=== PATIENT | male | born 1955 | race Caucasian/White ===

== ENCOUNTER 2018-10-30 14:00 | Outpatient (RCR) | payer OTHER ==
[2013-05-24 14:35] VITALS: BMI 27.8
--- NOTE | 2018-10-25 11:48 | RS.OPPTEV2 ---
Date of Note: 10/24/18 Visit #: 1 Number of visits approved by Insurance: n/a Date of Evaluation: 10/24/18 Payer Source: MEDICARE Surgery Performed?: Yes Treatment Diagnosis: pain L hip, SI joint dysfunction History of Condition/Mechanism of Injury:: Pain began approx 3 days ago. No definite injury noted. Pain initially began while cominmg home from a trip while riding in the car. 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 States that his pain is in L hip and area of L SI joint. States saw MD today and he ordered prednisone, and pain meds but hasn't taken it yet. Treatment Side (optional): Left *Precautions: n/a Medical History Medical History: Hypertension Surgical History Comments:: hernia surgery Smoking Status: Never smoker Hx Home Medications: lisinopril Patient's Goals: decrease pain in L hip to return to normal level of function Pain Assessment - Pain Description Pain Location: L hip and SI area Pain Description: Sharp, Aching Current Pain Intensity: 8 Worst Pain Intensity: 10 Functional Outcome Measure LE Functional Scale: 8 - G Codes & Severity Modifier G Codes & Modifier: n/a Source of G Code score: n/a Observation - Observation Inspection: RLE longer than LLE. Hamstring tightness, IT band tightness Posture: Forward Head, Rounded Shoulders Handedness: Right Gait - Gait Pattern General Gait Pattern Observation: Antalgic Gait Gait Comments: pt amb with guarded posture, decreased step length with antalgic gait pattern. pt hip hikes to clear R LE due to pain in hip. Transfers sit to sup with min x 1 to assist with LLE General Range of Motion: BUE WFL's. RLE WFL's. LLE hip flex limited due to pain, knee and ankle WFL's Muscle Strength: BUE 5/5. RLE 5/5. LLE hip flex 3-/5, knee flex/ext atleast 3/ 5 as noted by ROM pt unable to tolerate further testing - ROM Lumbar Flexion: Hand reach to Mid-Thighs Sidebending to Left: Reach to Mid-thigh Sidebending to Right: Reach to Mid-thigh Lumbar Spine ROM Limitations: Soft Tissue Tightness, Pain - Strength Trunk Flexion: 3- Fair- Trunk Lateral Flexion: 3- Fair- - Special Tests SLR Test: Positive Left SI Joint Compression: Positive Comments: unable to perform all special tests due to significant pain. Hip ROM: Right WFL's Hip Muscle Strength: Right WFL's - Left Hip ROM Left Hip ROM Limitations: Pain, Tightness on Left, Pain on Left - Left Hip Strength Left Hip Flexion: 3- Fair- Left Hip Extension: 3- Fair- Left Hip Abduction: 3- Fair- Left Hip Adduction: 3- Fair- Left Hip External Rotation: 3- Fair- Left Hip Internal Rotation: 3- Fair- Comments: Difficult to MMT due to pain in L hip and SI area. - Right Hip Strength Comments: hip scour neg, pt does have pain with internal rotation of L hip. pt reports pain as sharp. - Special Test LULU Test: Positive Left Palpation Palpation Findings: Tenderness, Muscle Guarding Comments:: pt with tenderness to palpation in L SI area with muscle guarding, tenderness on L greater trochanter to palpation. Sensation - Sensation Right Upper Extremity: Intact/Normal Left Upper Extremity: Intact/Normal Right Lower Extremity: Intact/Normal Left Lower Extremity: Intact/Normal Balance - Sitting Balance Static Sitting Balance: Good - Standing Balance Static Standing Balance: Good Dynamic Standing Balance: Good - Treatment Modality: Electrical Stim Unattended Parameters/Method Applied: IFC at 12ma x 20 mins Treatment Area: L SI area Patient Position: Prone - Heat/Cryotherapy Treatment: Cryotherapy Comments:: L SI with estim Interventions - Exercise/Activities/Manual Therapy Exercises/Activities: Discussion with patient regarding positioning to decrease pain, ice to decrease pain and inflammation. pt unable to tolerate ex on day of eval. Manual Therapy: n/a HOME EXERCISE PROGRAM: No HEP given at this time, pt to return tomorrow. - Charges Timed Code Treatment Minutes: 36 Total Treatment Time: 58 Procedures billed for this date of service:: eval low, estim, CP EVALUATION COMPLEXITY LEVEL EVALUATION COMPLEXITY LEVEL: HISTORY: Low, EXAM OF BODY SYSTEMS: Low, CLINICAL PRESENTATION: Low, CLINICAL DECISION MAKING: Low Assessment Assessment: pt presents with significant 8/10 pain in L hip and SI joint area. pt with limited lumbar and L hip ROM due to pain. pt does have pain to palpation and muscle guarding in area of L SI. Feel pt would benefit from PT for therex for stretching, strengthening as well as modalities to decrease pain/ inflammation. PT eval completed over 2 visits due to pain. 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 Goal #1: pt able to return to normal household activities with less pain Goal to be met by: 12/01/18 Goal #2: pt report pain < 4/10 L hip/SI Goal to be met by: 12/01/18 Goal #3: Leg length equal BLE Goal to be met by: 12/01/18 Goal #4: pt amb without antalgic gait pattern Goal to be met by: 12/01/18 Plan - Treatment to be Provided Procedures: Therapeutic Exercises, Therapeutic Activity, Manual Therapy, Massage , Patient Education Modalities: Electrical Stimulation, Ultrasound/Phonophoresis, Class IV Laser, Cryotherapy, Hot Packs Other:: plan to further assess patient on next visit if - Treatment Plan Frequency: 2-3x a week Duration: 6 weeks Dates of Snf Goals: 12/01/18 Expiration date of current Insurance Approval:: n/a - Treatment Code (1) Left hip pain Code(s): M25.552 - PAIN IN LEFT HIP (2) Sacroiliac dysfunction Code(s): M53.3 - SACROCOCCYGEAL DISORDERS, NOT ELSEWHERE CLASSIFIED (3) Hamstring tightness Code(s): M62.89 - OTHER SPECIFIED DISORDERS OF MUSCLE (4) Stiffness of left hip joint Code(s): M25.652 - STIFFNESS OF LEFT HIP, NOT ELSEWHERE CLASSIFIED
--- NOTE | 2018-10-27 14:41 | RS.OPPTDN ---
Subjective Date of Note: 10/27/18 Visit #: 2 Number of visits approved by Insurance: na Date of Evaluation: 10/24/18 Payer Source: MEDICARE Treatment Diagnosis: pain L hip, SI joint dysfunction Current Subjective/complaints:: Patient enters clinic with slight antalgic gait ,but reports feeling much better than earlier in the week.He reports ahving a couple of tender spots in the L lumbar and L LE.He reports he has not taken any pain meds. today. *Precautions: n/a Pain Assessment - Pain Description Pain Location: L lumbar and L LE Pain Description: Dull, Aching Current Pain Intensity: 2-3 - Treatment Modality: Ultrasound Parameters/Method Applied: 10 mins. @ 1.5 w/cm2,cont. mode to lumbar. Patient Position: Prone - Heat/Cryotherapy Treatment: Hot Pack (20 mins. prior to US ) Interventions - Exercise/Activities/Manual Therapy Exercises/Activities: 35 mins. total of SKTC,DKTC,piriformis stretch in shortened ROM,SI MET.Long axis distraction to L LE. Total minutes of Exercise: 35 Manual Therapy: n/a Total minutes of Manual Therapy: 0 HOME EXERCISE PROGRAM: No HEP given at this time, pt to return tomorrow. - Charges Timed Code Treatment Minutes: 35 Total Treatment Time: 55 Procedures billed for this date of service:: hp,US,ex 2 Assessment: Progressing ,has significant improvement ,has less intensity of pain today,is able t0 tolerate the passive stretches.He is cautious and has good understanding of not to push through sharp pain .He is highly motivated to improve ,attentive to recommendations regarding his care. Patient Education: Education of diagnosis, Body/Joint mechanics, Home Exercise Program, Home Safety, Activity Modification, Education of Plan of Care Patient demonstrates compliance with HEP?: Yes Short Term Goals Goal #1: pt independent with initial HEP Goal to be met by: 11/10/18 Progress towards Goal:: Progressing Goal #2: Decrease pain in L hip/SI < 6/10 Goal to be met by: 11/10/18 Progress towards Goal:: Progressing Goal #3: Improve flexibility in L hamstring Goal to be met by: 11/10/18 Progress towards Goal:: Progressing Goal #4: ROM L hip WFL's w less pain Goal to be met by: 11/10/18 Progress towards Goal:: Progressing Senior Living Goals Goal #1: pt able to return to normal household activities with less pain Goal to be met by: 12/01/18 Goal #2: pt report pain < 4/10 L hip/SI Goal to be met by: 12/01/18 Goal #3: Leg length equal BLE Goal to be met by: 12/01/18 Goal #4: pt amb without antalgic gait pattern Goal to be met by: 12/01/18 Plan Dates of Senior Living Goals: 12/01/18 Expiration date of current Insurance Approval:: 12/01/18 PLAN: Cont. skilled PT to reduce /eliminate L hip /L LE pain.
--- NOTE | 2018-10-30 15:16 | RS.OPPTDN ---
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 *Precautions: n/a Pain Assessment - Pain Description Pain Location: L hip /L LE Current Pain Intensity: not rated - Heat/Cryotherapy Treatment: Hot Pack (20 mins. to lumbar) Interventions - Exercise/Activities/Manual Therapy Exercises/Activities: 30 mins. total of SKTC,DKTC,piriformis stretch.L heelcord stretches in short ROM.Instructed in standing lunges to stretch calf. Total minutes of Exercise: 30 Manual Therapy: n/a Total minutes of Manual Therapy: 0 HOME EXERCISE PROGRAM: Heel cord stretches,SKTC,DKTC,hams. stretches,piriformis stretches. - Charges Timed Code Treatment Minutes: 30 Total Treatment Time: 50 Procedures billed for this date of service:: hp,ex 2 Assessment: Patient has much improved AROM in the L LE with minimal pain.The L upper portion of the calf is tender to palpate today.He feels this may be from doing the hamstring stretches.Recommended to mention this to the ,as he does have edema present .He has negative Homans sign when assessed by the PT. Patient Education: Body/Joint mechanics, Home Exercise Program, Home Safety, Activity Modification, Education of Plan of Care Patient demonstrates compliance with HEP?: Yes Short Term Goals Goal #1: pt independent with initial HEP Goal to be met by: 11/10/18 Progress towards Goal:: Progressing Goal #2: Decrease pain in L hip/SI < 6/10 Goal to be met by: 11/10/18 Progress towards Goal:: Met Goal #3: Improve flexibility in L hamstring Goal to be met by: 11/10/18 Progress towards Goal:: Progressing Goal #4: ROM L hip WFL's w less pain Goal to be met by: 11/10/18 Progress towards Goal:: Progressing Care Home Goals Goal #1: pt able to return to normal household activities with less pain Goal to be met by: 12/01/18 Progress towards goal: Progressing Goal #2: pt report pain < 4/10 L hip/SI Goal to be met by: 12/01/18 Goal #3: Leg length equal BLE Goal to be met by: 12/01/18 Progress towards goal: Progressing Goal #4: pt amb without antalgic gait pattern Goal to be met by: 12/01/18 Progress towards goal: Progressing (improves with cues for heel strike on the L LE) 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 skilled PT to eliminate L hip /L LE pain ,return to PLOF.
--- NOTE | 2018-10-31 16:06 | RS.QUICKDC ---
Discharge from PT Date of Discharge: 10/31/18 Number of Visits: 3 Reason for Discharge: Patient called ,reports the DrMala has ordered ultrasound on his left calf,and to stop the PT .He does report his back and L hip feel much better.He understands to stop the HEP also,until the Dr Medeiros discusses his test results regarding the L calf.
== END 2018-11-18 23:59 ==
PROVIDERS: ATTEND Family Medicine
DX: M25.552 Pain in left hip (principal)